=== PATIENT | male | born 1990 | race Hispanic/Latino ===

== ENCOUNTER 2017-09-19 04:10 | Emergency (ER) | payer OTHER ==
[2017-09-19 05:57] LABS: BASO % 0.4 % (0.0-1.0); EOS # 0.1 10^3/uL (0.0-0.50); EOS % 0.6 % (0.0-3.0); HEMATOCRIT 44.7 % (42.0-52.0); HEMOGLOBIN 14.9 g/dl (13.5-17.5); IMMATURE GRANULOCYTE % 0.5 % (0-3.0); LYMPH # 1.6 10^3/uL (1.5-6.5); LYMPH % 14.4 % (24.0-44.0); MEAN CORPUSCULAR HEMOGLOBIN 27.3 pg (27.0-33.0); MEAN CORPUSCULAR HGB CONC 33.3 g/dl (32.0-36.5); MONO # 0.8 10^3/uL (0.0-0.8); NEUTROPHILS # 8.5 10^3/uL (1.8-7.7); NEUTROPHILS % 77.1 % (36.0-66.0); PLATELET COUNT, AUTOMATED 234 10^3/uL (150-450); RED BLOOD COUNT 5.45 10^6/uL (4.30-6.10); RED CELL DISTRIBUTION WIDTH 13.8 % (11.5-14.5)
[2017-09-19] MEDS: NS 1,000 ML IV (05:58)
[2017-09-19 06:21] LABS: ALBUMIN 4.1 GM/DL (3.2-5.2); ALBUMIN/GLOBULIN RATIO 0.98 (1.00-1.93); ALKALINE PHOSPHATASE 80 U/L (45-117); ALT/SGPT 143 U/L (12-78); ANION GAP 6 MEQ/L (8-16); AST/SGOT 37 U/L (7-37); BILIRUBIN,DIRECT 0.1 MG/DL (0.0-0.2); BILIRUBIN,TOTAL 0.3 MG/DL (0.2-1.0); BLOOD UREA NITROGEN 16 MG/DL (7-18); CALCIUM LEVEL 8.7 MG/DL (8.5-10.1); CARBON DIOXIDE LEVEL 27 MEQ/L (21-32); CHLORIDE LEVEL 110 MEQ/L (98-107); CREATININE FOR GFR 0.95 MG/DL (0.70-1.30); GLOMERULAR FILTRATION RATE > 60.0 (>60); GLUCOSE, FASTING 105 MG/DL (70-100); LIPASE 220 U/L (73-393); POTASSIUM SERUM 4.2 MEQ/L (3.5-5.1); SODIUM LEVEL 143 MEQ/L (136-145); TOTAL PROTEIN 8.3 GM/DL (6.4-8.2)
[2017-09-19] MEDS: DICYCLOMINE INJ 20MG/2ML (J0500) IM (06:44)
== END 2017-09-19 08:11 | disposition home or self-care (01) ==
LOC: M ED 04:10
DX: K52.9 Noninfective gastroenteritis and colitis, unspecified (principal); Z91.013 Allergy to seafood
CPT/HCPCS: J0500

== ENCOUNTER → 2018-11-21 | Outpatient (REF) | payer OTHER ==
[~2018-11-21] MED LIST: ZOFR4TAB14 PO
== END ==
LOC: M LAB REF 15:08
PROVIDERS: ATTEND Physician Assistant
DX: J02.9 Acute pharyngitis, unspecified (principal)

== ENCOUNTER 2019-07-17 16:49 | Emergency (ER) | payer OTHER ==
[~2019-07-17] VITALS: Ht 154.9 cm; Wt 78.7 kg
--- NOTE | 2019-07-17 18:01 | REPVR ---
PROCEDURE INFORMATION: Exam: US Scrotum Exam date and time: 07/17/2019 5:45 PM Age: 29 years old Clinical indication: Scrotum pain; Additional info: Swelling to right side TECHNIQUE: Imaging protocol: Real-time ultrasound of the scrotum and contents with color Doppler and image documentation. COMPARISON: No relevant prior studies available. FINDINGS: Right testicle: The right testis measures 3.9 x 2.3 x 3.1 cm. There is physiologic blood flow within the right testis, without evidence of torsion. Several tiny hyperechoic foci are identified within the right testis, consistent with microlithiasis. No intratesticular mass identified. Left testicle: The left testis measures 3.9 x 2.1 x 3.1 cm. There is physiologic blood flow within the left testis, without evidence of torsion. Several tiny hyperechoic foci are identified within the left testis, consistent with microlithiasis. No intratesticular mass identified. Epididymides: Increased blood flow is identified within the right epididymis, suggestive of epididymitis. There is preservation of blood flow within the left epididymis. No epididymal mass identified. Scrotum: Small bilateral hydroceles. IMPRESSION: 1. Increased blood flow is identified within the right epididymis, suggestive of epididymitis. 2. Small bilateral hydroceles. 3. Several tiny hyperechoic foci are identified within each testis, consistent with microlithiasis. No intratesticular mass identified. Follow-up ultrasonography is recommended due to the association of microlithiasis with testicular neoplasm. Electronically signed by: Osmar Vann On 07/17/2019 18:01:26 PM
[2019-07-17 19:34] VITALS: BP 132/80
[2019-07-17 20:28] LABS: CHLAMYDIA DNA AMPLIFICATION NEGATIVE (NEGATIVE); GC DNA AMPLIFICATION NEGATIVE (NEGATIVE)
== END 2019-07-17 19:35 | disposition home or self-care (01) ==
LOC: M ED 16:49
DX: N50.89 Other specified disorders of the male genital organs (principal); N45.1 Epididymitis; N43.3 Hydrocele, unspecified; Z91.013 Allergy to seafood

== ENCOUNTER → 2019-08-18 | Outpatient (REF) | payer OTHER ==
[2019-08-18 13:59] LABS: APPEARANCE, URINE HAZY (CLEAR); BACTERIA, URINE AUTO NEGATIVE (NEGATIVE); BILIRUBIN, URINE AUTO NEGATIVE (NEGATIVE); BLOOD, URINE BLOOD 1+ (NEGATIVE); CALCIUM OXALATE CRYSTALS SMALL; COLOR, URINE YELLOW (YELLOW); GLUCOSE, URINE (UA) AUTO NEGATIVE (NEGATIVE); KETONE, URINE AUTO NEGATIVE (NEGATIVE); LEUKOCYTE ESTERASE, URINE AUTO NEGATIVE (NEGATIVE); MUCUS, URINE SMALL (NEGATIVE); NITRITE, URINE AUTO NEGATIVE (NEGATIVE); PROTEIN, URINE AUTO NEGATIVE (NEGATIVE); RBC, URINE AUTO 2 /HPF (0-3); SPECIFIC GRAVITY URINE AUTO 1.026 (1.002-1.035); SQUAMOUS EPITHELIAL CELL UR AU 0 /HPF (0-6); UROBILINOGEN, URINE AUTO 0.2 mg/dL (0.0-2.0); WBC, URINE AUTO 1 /HPF (0-3)
== END ==
LOC: M SMT 13:39
PROVIDERS: ATTEND Urology
DX: N45.1 Epididymitis (principal)
CPT/HCPCS: 81001; 81002; G0463

== ENCOUNTER → 2020-04-08 | Outpatient (CLI) | payer OTHER ==
--- NOTE | 2020-04-09 05:10 | REP ---
INDICATION: EPIDIDYMITIS COMPARISON: 06/27/2019 TECHNIQUE: Bradford scale and color Doppler evaluation using linear high-frequency transducer with color Doppler evaluation. FINDINGS: The testicles and epididymi are relatively normal in contour, size, echogenicity, vascularity and overall appearance. There is no evidence for intratesticular mass lesion, infectious/inflammatory process, or torsion. No obvious hydroceles or varicoceles are identified. Incidental 3 mm left epididymal cyst noted. Right testicle measures 3.8 x 2.0 x 3.0 cm. Left testicle measures 3.9 x 2.0 x 3.1 cm. IMPRESSION: Essentially normal scrotal ultrasound. <Electronically signed by Sai Peralta > 04/09/20 [id number]
== END ==
LOC: M RAD 08:52
PROVIDERS: ATTEND Urology
DX: N45.1 Epididymitis (principal)

== ENCOUNTER → 2020-12-10 | Outpatient (CLI) | payer OTHER ==
--- NOTE | 2020-12-10 11:36 | REP ---
INDICATION: CONTUSION. COMPARISON: None. TECHNIQUE: Four views of the left index finger. FINDINGS: Four views of the left index finger demonstrate mild soft tissue swelling at the distal phalanx. No fracture or opaque foreign body is seen. Joint spaces are preserved alignment is normal.. . . IMPRESSION: Soft tissue swelling. No fracture seen.. <Electronically signed by Cristiano Trevino > 12/10/20 [id number]
== END ==
LOC: M WUC 09:13
PROVIDERS: ATTEND Physician Assistant
DX: S60.122A Contusion of left index finger with damage to nail, initial encounter (principal); X58.XXXA Exposure to other specified factors, initial encounter; Y92.89 Other specified places as the place of occurrence of the external cause; Y93.9 Activity, unspecified; Y99.9 Unspecified external cause status

== ENCOUNTER 2021-10-08 07:47 | Inpatient (IN) | payer OTHER ==
[~2021-10-08] VITALS: Ht 154.9 cm; Wt 84.5 kg
[2021-10-08 08:47] LABS: HEMATOCRIT 43.5 % (42.0-52.0); HEMOGLOBIN 14.6 g/dl (13.5-17.5); MEAN CORPUSCULAR HEMOGLOBIN 27.8 pg (27.0-33.0); MEAN CORPUSCULAR HGB CONC 33.6 g/dl (32.0-36.5); MEAN CORPUSCULAR VOLUME 82.9 fl (80.0-96.0); PLATELET COUNT, AUTOMATED 231 10^3/uL (150-450); RED BLOOD COUNT 5.25 10^6/uL (4.30-6.10); WHITE BLOOD COUNT 9.1 10^3/uL (4.0-10.0)
[2021-10-08 09:14] LABS: AMPHETAMINES LEVEL URINE NEGATIVE (NEGATIVE); BARBITURATES URINE NEGATIVE (NEGATIVE); BENZODIAZEPINES URINE NEGATIVE (NEGATIVE); CANNABINOIDS URINE NEGATIVE (NEGATIVE); COCAINE METABOLITE URINE NEGATIVE (NEGATIVE); METHADONE URINE NEGATIVE (NEGATIVE); OPIATES URINE NEGATIVE (NEGATIVE); PHENCYCLIDINE URINE NEGATIVE (NEGATIVE)
[2021-10-08 09:32] LABS: ACETAMINOPHEN LEVEL < 2.0 UG/ML (10.0-30.0); ALBUMIN 3.9 GM/DL (3.2-5.2); ALT/SGPT 77 U/L (12-78); BILIRUBIN,DIRECT 0.2 MG/DL (0.0-0.2); BILIRUBIN,TOTAL 0.7 MG/DL (0.2-1.0); BLOOD UREA NITROGEN 18 MG/DL (7-18); CALCIUM LEVEL 9.4 MG/DL (8.5-10.1); CARBON DIOXIDE LEVEL 23 MEQ/L (21-32); CHLORIDE LEVEL 110 MEQ/L (98-107); CREATININE FOR GFR 0.89 MG/DL (0.70-1.30); ETHYL ALCOHOL (ETHANOL) < 0.003 % (0.000-0.010); GLOMERULAR FILTRATION RATE > 60.0 (>60); GLUCOSE, FASTING 107 MG/DL (70-100); POTASSIUM SERUM 3.6 MEQ/L (3.5-5.1); SALICYLATE LEVEL < 1.7 MG/DL (5.0-30.0); SODIUM LEVEL 144 MEQ/L (136-145); TOTAL PROTEIN 7.9 GM/DL (6.4-8.2)
[2021-10-09] MEDS: NICOTINE 21MG/24HR 1 EA TRANSDERMAL TD SCH (09:00)
[2021-10-09] MEDS ORDERED: LORazepam 2 MG TAB PO STA (09:07)
[2021-10-09] MEDS ORDERED: HOME MED LIST COMPLETE! XX SCH (09:40)
[2021-10-09] MEDS ORDERED: MOM 30ML SUSPENSION UDC PO PRN (14:30)
[2021-10-09] MEDS ORDERED: traZODone 50 MG TAB PO PRN (14:30)
[2021-10-09] MEDS ORDERED: MAALOX 30 ML SUSP *UDC PO PRN (14:30)
[2021-10-09] MEDS ORDERED: diphenhydrAMINE 25MG CAP PO PRN (14:30)
[2021-10-09 19:40] VITALS: BP 145/93
[2021-10-10 06:31] VITALS: BP 131/66
[2021-10-10] MEDS ORDERED: INFLUENZA QUADRIVALENT PF VACCINE 0.5ML SYRINGE IM ONE (09:00)
[2021-10-10] MEDS: NICOTINE 21MG/24HR 1 EA TRANSDERMAL TD SCH (09:00)
[2021-10-10] MEDS ORDERED: diphenhydrAMINE 50MG CAP PO PRN (12:25)
[2021-10-10] MEDS: busPIRone 5 MG TAB PO SCH ×2 (16:42→21:08)
[2021-10-10] MEDS: DULoxetine 30MG CAPSULE (CYMBALTA) PO SCH (16:42)
[2021-10-10 17:20] VITALS: BP 129/75
[2021-10-11 06:50] VITALS: BP 124/83
[2021-10-11] MEDS: DULoxetine 30MG CAPSULE (CYMBALTA) PO SCH (08:52)
[2021-10-11] MEDS: busPIRone 5 MG TAB PO SCH ×3 (08:52→21:47)
[2021-10-11 15:27] VITALS: BP 124/83
[2021-10-11 19:16] VITALS: BP 135/86
[2021-10-12 06:38] VITALS: BP 124/79
[2021-10-12] MEDS: DULoxetine 30MG CAPSULE (CYMBALTA) PO SCH (09:56)
[2021-10-12] MEDS: busPIRone 5 MG TAB PO SCH ×3 (09:56→21:31)
[2021-10-12] MEDS: GASTROGRAFIN SOLUTION 30ML PO SCH ×2 (16:19→16:49)
[2021-10-12 17:16] VITALS: BP 118/74
[2021-10-12] MEDS ORDERED: ISOVUE-370 76% 100ML VIAL As Ordered ONE (17:52)
[2021-10-13 06:00] VITALS: BP 131/76
[2021-10-13] MEDS: DULoxetine 30MG CAPSULE (CYMBALTA) PO SCH (08:44)
[2021-10-13] MEDS: busPIRone 5 MG TAB PO SCH ×3 (08:44→21:52)
[2021-10-13 18:00] VITALS: BP 123/73
[2021-10-14 06:34] VITALS: BP 121/77
[2021-10-14] MEDS: busPIRone 5 MG TAB PO SCH ×3 (09:09→20:35)
[2021-10-14] MEDS: DULoxetine 30MG CAPSULE (CYMBALTA) PO SCH (09:09)
[2021-10-14 18:00] VITALS: BP 134/84
[2021-10-15 06:23] VITALS: BP 117/77
[2021-10-15] MEDS: busPIRone 5 MG TAB PO SCH ×3 (09:23→20:52)
[2021-10-15] MEDS: DULoxetine 30MG CAPSULE (CYMBALTA) PO SCH (09:24)
[2021-10-15 17:26] VITALS: BP 127/76
[2021-10-16 06:56] VITALS: BP 133/90
[2021-10-16] MEDS: busPIRone 5 MG TAB PO SCH ×3 (09:15→20:51)
[2021-10-16] MEDS: DULoxetine 30MG CAPSULE (CYMBALTA) PO SCH (09:15)
[2021-10-16 18:31] VITALS: BP 127/87
[2021-10-17 07:02] VITALS: BP 124/87
[2021-10-17] MEDS: busPIRone 5 MG TAB PO SCH ×2 (09:52→15:26)
[2021-10-17] MEDS: DULoxetine 30MG CAPSULE (CYMBALTA) PO SCH (09:52)
[2021-10-17] MEDS ORDERED: DULO1CAP6 PO (12:03)
[2021-10-17] MEDS ORDERED: BUSP5TA PO (12:03)
[2021-10-17 17:48] VITALS: BP 138/80
== END 2021-10-17 19:42 | disposition home or self-care (01) | DRG 885 ==
LOC: M ED 07:47 → M ED INP 10-09 14:28 → M PSY 10-09 19:46
PROVIDERS: ADMIT Psychiatry & Neurology Psychiatry; ATTEND Psychiatry & Neurology Psychiatry
DX: F33.2 Major depressive disorder, recurrent severe without psychotic features (principal); U07.1 COVID-19; R45.851 Suicidal ideations; F43.10 Post-traumatic stress disorder, unspecified; Z63.5 Disruption of family by separation and divorce; Z62.810 Personal history of physical and sexual abuse in childhood; Z91.410 Personal history of adult physical and sexual abuse; G35 Multiple sclerosis; Z91.013 Allergy to seafood; Z79.899 Other long term (current) drug therapy; R10.9 Unspecified abdominal pain; R19.7 Diarrhea, unspecified

== ENCOUNTER 2023-06-25 11:24 | Emergency (ER) | payer OTHER ==
[~2023-06-25] VITALS: Ht 154.9 cm; Wt 76.9 kg
[~2023-06-25 11:24] MED LIST changes: +BUSP5TA PO; +DULO1CAP6 PO
[2023-06-25 12:13] LABS: BASO % 0.4 % (0.0-1.0); EOS # 0.1 10^3/uL (0.0-0.5); EOS % 1.2 % (0.0-3.0); HEMATOCRIT 44.1 % (42.0-52.0); HEMOGLOBIN 14.8 g/dl (13.5-17.5); LYMPH # 1.4 10^3/uL (1.5-5.0); LYMPH % 18.6 % (24.0-44.0); MEAN CORPUSCULAR HEMOGLOBIN 27.8 pg (27.0-33.0); MEAN CORPUSCULAR HGB CONC 33.6 g/dl (32.0-36.5); MEAN CORPUSCULAR VOLUME 82.7 fl (80.0-96.0); MONO # 0.7 10^3/uL (0.0-0.8); MONO % 9.3 % (2.0-8.0); NEUTROPHILS # 5.1 10^3/uL (1.5-8.5); NEUTROPHILS % 69.5 % (36.0-66.0); PLATELET COUNT, AUTOMATED 209 10^3/uL (150-450); RED BLOOD COUNT 5.33 10^6/uL (4.30-6.10); WHITE BLOOD COUNT 7.4 10^3/uL (4.0-10.0)
[2023-06-25 12:33] LABS: LIPASE 44 U/L (12-53)
[2023-06-25 12:36] LABS: ALKALINE PHOSPHATASE 74 U/L (46-116); ALT/SGPT 77 U/L (7.0-40); AST/SGOT 27 U/L (<34); BILIRUBIN,DIRECT 0.2 MG/DL (<0.4); BILIRUBIN,TOTAL 0.6 MG/DL (0.3-1.2); BLOOD UREA NITROGEN 15 MG/DL (9-23); CALCIUM LEVEL 9.2 MG/DL (8.5-10.1); CARBON DIOXIDE LEVEL 25 MMOL/L (20-31); CHLORIDE LEVEL 104 MMOL/L (98-107); CK-MB VALUE MASS < 1.0 NG/ML (<3.6); CPK CREATINE PHOSPHOKINASE 197 U/L (46-171); CREATININE FOR GFR 0.69 MG/DL (0.70-1.30); GLOMERULAR FILTRATION RATE > 60.0 (>60); GLUCOSE, FASTING 104 MG/DL (60-100); SODIUM LEVEL 137 MMOL/L (136-145); TOTAL PROTEIN 7.7 G/DL (5.7-8.2)
[2023-06-25 12:37] LABS: FREE T4 1.23 NG/DL (0.89-1.76)
[2023-06-25 12:38] LABS: THYROID STIMULATING HORMONE 0.922 uIU/ML (0.55-4.78)
[2023-06-25] MEDS ORDERED: ISOVUE-370 76% 100ML VIAL As Ordered ONE (12:43)
[2023-06-25] MEDS ORDERED: THERTAB52 PO (12:44)
[2023-06-25 13:45] VITALS: BP 125/83; O2SAT 98
[2023-06-25 13:50] LABS: CK-MB VALUE MASS < 1.0 NG/ML (<3.6)
[2023-06-25 13:51] LABS: CPK CREATINE PHOSPHOKINASE 145 U/L (46-171); MB/CK RELATIVE INDEX 0.68 (< OR =4)
[2023-06-25 14:16] VITALS: TEMP 97.8
== END 2023-06-25 14:19 | disposition home or self-care (01) ==
LOC: M ED 11:24
DX: R07.9 Chest pain, unspecified (principal); F43.10 Post-traumatic stress disorder, unspecified; F84.0 Autistic disorder; Z91.013 Allergy to seafood; Z79.899 Other long term (current) drug therapy
CPT/HCPCS: 36415; 71045; 71275; 80048; 80076; 82550; 82553; 83690; 84439; 84443; 84484; 85025; 93005; 93041; 94760; 99285; Q9967

== ENCOUNTER → 2023-10-06 | Outpatient (CLI) | payer OTHER ==
[~2023-10-06] MED LIST changes: +GASTROGRAFIN SOLUTION 30ML As Ordered ONE; +THERTAB52 PO
== END ==
LOC: M RAD 08:50
PROVIDERS: ATTEND Internal Medicine
DX: K76.0 Fatty (change of) liver, not elsewhere classified (principal); R10.10 Upper abdominal pain, unspecified
CPT/HCPCS: 74160; Q9963

== ENCOUNTER 2023-12-02 08:26 | Emergency (ER) | payer OTHER ==
[~2023-12-02] VITALS: Ht 154.9 cm; Wt 71.1 kg
[~2023-12-02 08:26] MED LIST changes: -GASTROGRAFIN SOLUTION 30ML As Ordered ONE
[2023-12-02] MEDS: NS 1,000 ML IV ONE (09:45)
[2023-12-02] MEDS: ONDANSETRON 4MG 2ML VIAL IV ONE (09:45)
[2023-12-02 09:51] LABS: BASO % 0.5 % (0.0-1.0); EOS # 0.2 10^3/uL (0.0-0.5); EOS % 2.7 % (0.0-3.0); HEMATOCRIT 45.6 % (42.0-52.0); HEMOGLOBIN 14.9 g/dl (13.5-17.5); LYMPH # 1.4 10^3/uL (1.5-5.0); LYMPH % 21.9 % (24.0-44.0); MEAN CORPUSCULAR HEMOGLOBIN 27.4 pg (27.0-33.0); MEAN CORPUSCULAR HGB CONC 32.7 g/dl (32.0-36.5); MEAN CORPUSCULAR VOLUME 83.8 fl (80.0-96.0); MONO # 0.6 10^3/uL (0.0-0.8); MONO % 9.4 % (2.0-8.0); NEUTROPHILS # 4.1 10^3/uL (1.5-8.5); NEUTROPHILS % 64.4 % (36.0-66.0); PLATELET COUNT, AUTOMATED 196 10^3/uL (150-450); RED BLOOD COUNT 5.44 10^6/uL (4.30-6.10); WHITE BLOOD COUNT 6.4 10^3/uL (4.0-10.0)
[2023-12-02 10:11] LABS: CK-MB VALUE MASS 2.4 NG/ML (<3.6); LIPASE 57 U/L (12-53)
[2023-12-02 10:13] LABS: ALKALINE PHOSPHATASE 75 U/L (46-116); ALT/SGPT 55 U/L (7.0-40); AST/SGOT 23 U/L (<34); BILIRUBIN,DIRECT 0.1 MG/DL (<0.4); BILIRUBIN,TOTAL 0.4 MG/DL (0.3-1.2); CPK CREATINE PHOSPHOKINASE 234 U/L (46-171); MB/CK RELATIVE INDEX 1.02 (< OR =4); TOTAL PROTEIN 7.4 G/DL (5.7-8.2)
[2023-12-02] MEDS ORDERED: ISOVUE-370 76% 100ML VIAL As Ordered ONE (10:22)
[2023-12-02 11:19] LABS: CK-MB VALUE MASS 1.6 NG/ML (<3.6)
[2023-12-02 11:21] LABS: CPK CREATINE PHOSPHOKINASE 173 U/L (46-171); MB/CK RELATIVE INDEX 0.92 (< OR =4)
[2023-12-02] MEDS: KETOROLAC 30 MG/ML 1ML VIAL IV ONE (12:18)
[2023-12-02] MEDS ORDERED: ONDA-282 PO (13:07)
[2023-12-02 13:24] VITALS: BP 139/86; TEMP 97.6; O2SAT 98
== END 2023-12-02 13:26 | disposition home or self-care (01) ==
LOC: M ED 08:26
DX: R10.12 Left upper quadrant pain (principal); K76.0 Fatty (change of) liver, not elsewhere classified; Z87.891 Personal history of nicotine dependence; Z91.013 Allergy to seafood; Z79.83 Long term (current) use of bisphosphonates; Z79.899 Other long term (current) drug therapy
CPT/HCPCS: 71046; 74177; 80047; 80076; 82550; 82553; 83690; 84484; 85025; 93005; 96361; 96374; 96375; 99284; J1885; J2405; Q9967

== ENCOUNTER 2024-05-29 23:23 | Emergency (ER) | payer OTHER ==
[~2024-05-29] VITALS: Ht 154.9 cm; Wt 72.7 kg
[~2024-05-29 23:23] MED LIST changes: +ONDA-282 PO
[2024-05-30] MEDS: DERMABOND TOPICAL SKIN ADHESIVE TOP ONE (01:30)
[2024-05-30] MEDS: BOOSTRIX VACCINE (TETANUS/DIPHTH/ACEL. PERTUSSIS) 0.5ML SYR IM ONE (01:32)
[2024-05-30 01:46] VITALS: BP 120/81; TEMP 97.1; O2SAT 98
== END 2024-05-30 01:48 | disposition home or self-care (01) ==
LOC: M ED 23:23
DX: S61.012A Laceration without foreign body of left thumb without damage to nail, initial encounter (principal); W26.8XXA Contact with other sharp object(s), not elsewhere classified, initial encounter; Y92.009 Unspecified place in unspecified non-institutional (private) residence as the place of occurrence of the external cause; Y93.89 Activity, other specified; Y99.9 Unspecified external cause status; Z91.013 Allergy to seafood; Z79.899 Other long term (current) drug therapy; Z23 Encounter for immunization

== ENCOUNTER 2024-11-30 06:19 | Emergency (ER) | payer OTHER ==
[~2024-11-30] VITALS: Ht 154.9 cm; Wt 75.0 kg
[2024-11-30 07:36] LABS: PLATELET COUNT, AUTOMATED 193 10^3/uL (150-450)
[2024-11-30 08:04] LABS: CALCIUM LEVEL 8.8 MG/DL (8.5-10.1); CARBON DIOXIDE LEVEL 26 MMOL/L (20-31); CHLORIDE LEVEL 107 MMOL/L (98-107); CREATININE FOR GFR 0.80 MG/DL (0.70-1.30); GLOMERULAR FILTRATION RATE > 90.0 (>60); POTASSIUM SERUM 3.9 MMOL/L (3.5-5.1); SODIUM LEVEL 143 MMOL/L (136-145)
[2024-11-30] MEDS ORDERED: DICY-61 PO (08:31)
[2024-11-30 08:45] VITALS: BP 124/86; TEMP 97.8; O2SAT 95
== END 2024-11-30 09:06 | disposition home or self-care (01) ==
LOC: M ED 06:19
DX: R10.9 Unspecified abdominal pain (principal); I25.2 Old myocardial infarction; Z91.013 Allergy to seafood; Z79.899 Other long term (current) drug therapy; Z79.810 Long term (current) use of selective estrogen receptor modulators (SERMs)